=== PATIENT | male | born 1965 | race Two or more races ===

== ENCOUNTER 2016-07-28 21:36 | Emergency (ER) | payer MEDICAID ==
--- NOTE | 2016-07-28 21:57 | ED Physician Chart ---
Chief Complaint/HPI - Patient Information Date Seen:: 07/28/16 Time Seen:: 21:50 Chief Complaint:: Intermittent lightheadedness since this morning. History of Present Illness:: Pt is primarily [place] speaking. Interpretation is provided by his daughter Sheri per pt's request. Pt c/o intermittent lightheadedness since this morning. No CP or discomfort. No dyspnea. Pt has had nasal congestion. No cough. No fever. No palpitation. Allergies:: Allergies Allergy/AdvReac Type Severity Reaction Status Date / Time No Known Allergies Allergy Verified 12/07/15 18:01 Vitals:: see Nurse Note. Historian:: Patient Family MD/PCP:: Dr. Menendez. LMP:: N/A Review:: Nurse's Note Reviewed Review of Systems - Review of Systems General/Constitutional: No fever, No chills, No weight loss, No weakness, No diaphoresis, No edema, No loss of appetite Skin: No skin lesions, No rash, No bruising Head: No headache, Light headed (Intermittent.) Eyes: No loss of vision, No pain, No diplopia ENT: No earache, Nasal drainage, No sore throat, No tinnitus Neck: No neck pain, No swelling, No thyromegaly, No stiffness, No mass noted Cardio Vascular: No chest pain, No palpitations, No PND, No orthopnea, No edema Pulmonary: No SOB, No cough, No sputum, No wheezing GI: No nausea, No vomiting, No diarrhea, No pain, No melena, No hematochezia, No constipation, No hematemesis G/U: No dysuria, No frequency, No hematuria Musculoskeletal: No bone or joint pain, No back pain, No muscle pain Endocrine: No polyuria, No polydipsia Psychiatric: Prior psych history (with anxiety disorder.), No depression, No suicidal ideation, No homicidal ideation Hematopoietic: No bruising, No lymphadenopathy Allergic/Immuno: No urticaria, No angioedema Neurological: No syncope, No focal symptoms, No weakness, No paresthesia, No headache, No seizure, No dizziness, No confusion, No vertigo Past Medical History - Past Medical History Past Medical History: HTN, PUD/GERD, Other (ESRD on hemodialysis on M, W, F. Chronic anemia.) Social History: Non Smoker, No Alcohol, No Drug Use, , Other (lives with his daughter.) Employment:: Retired. Psychiatricy History: Other (Anxiety disorder) Medication: Reviewed Family Medical History - Family Member Mother History Unknown: Yes Ethnicity: Living Status: Hx Family Cancer: (UNKNOWN) Hx Family Coronary Artery Disease: (UNKNOWN) Hx Family Congestive Heart Failure: (UNKNOWN) Hx Family Hypertension: (UNKNOWN) Hx Family Stroke: (UNKNOWN) Hx Family Diabetes: (UNKNOWN) Hx Family Seizures: (UNKNOWN) Hx Family Dementia: (UNKNOWN) Hx Family AIDS: (UNKNOWN) Hx Family COPD: (UNKNOWN) Hx Family Hepatitis: (UNKNOWN) Hx Family Psychiatric Problems: (UNKNOWN) Hx Family Tuberculosis: (UNKNOWN) Physical Exam - Physical Examination General/Constitutional: Awake, Well-developed, well-nourished, Alert, No distress, GCS 15, Non-toxic appearing, Ambulatory Other Gen/Cons comments:: Breathes comfortably, speaks clearly, and ambulates without difficulty. Head: Atraumatic Eyes: Lids, conjuctiva normal, PERRL, EOMI Skin: Nl inspection, No rash, No skin lesions, No ecchymosis, No lymphadenopathy ENMT: External ears, nose nl, TM canals nl, Nasal exam nl, Oropharynx nl, Tonsils nl Other ENMT comments:: Mucous membrane slightly dry. Neck: Nontender, Full ROM w/o pain, No JVD, No nuchal rigidity, No bruit, No mass, No stridor Respiratory: Nl effort/Exclusion, Clear to Auscultation, No Wheeze/Rhonchi/Rales Cardio Vascular: RRR, No murmur, gallop, rubs GI: No tenderness/rebounding/guarding, No organomegaly, No hernia, Normal BS's, Nondistended, No mass/bruits, No McBurney tenderness Other GI comments:: Abdomen is soft. Extremities: No tenderness or effusion, Full ROM, normal strength in all extremities, No edema, Normal digits & nails Neuro/Psych: Alert/oriented (oriented x 3), Mood normal, Normal gait, No focal deficits Labs/Radiology/EKG Results - Lab Results Results: Laboratory Tests 07/28/16 07/28/16 07/28/16 22:15 22:15 22:15 WBC 5.3 RBC 3.28 L Hgb 10.5 L Hct 31.2 L D MCV 94.9 MCH 31.9 H MCHC Differential 33.6 RDW 14.8 Plt Count 176 MPV 7.1 Neutrophils % 61.4 Lymphocytes % 20.9 Monocytes % 10.4 H Eosinophils % 6.6 H Basophils % 0.7 PT 11.8 H INR 1.12 PTT (Actin FS) 29.3 Sodium 135 L Potassium 4.9 Chloride 98 Carbon Dioxide 28.2 Anion Gap 13.7 BUN 80 H Creatinine 10.2 H* Est GFR ( Amer) 6.9 Est GFR (Non-Af Amer) 5.7 BUN/Creatinine Ratio 7.8 Glucose 103 Calcium 9.0 Total Bilirubin 0.4 AST 10 L ALT 7 Alkaline Phosphatase 101 Creatine Kinase 60 Troponin I Total Protein 6.5 Albumin 3.2 L Globulin 3.3 Albumin/Globulin Ratio 1.0 07/28/16 22:15 WBC RBC Hgb Hct MCV MCH MCHC Differential RDW Plt Count MPV Neutrophils % Lymphocytes % Monocytes % Eosinophils % Basophils % PT INR PTT (Actin FS) Sodium Potassium Chloride Carbon Dioxide Anion Gap BUN Creatinine Est GFR ( Amer) Est GFR (Non-Af Amer) BUN/Creatinine Ratio Glucose Calcium Total Bilirubin AST ALT Alkaline Phosphatase Creatine Kinase Troponin I 0.01 Total Protein Albumin Globulin Albumin/Globulin Ratio - EKG Interpretations EKG Time:: 22:21 Rhythm: Sinus bradycardia Rate: 59 Comments:: NSSTT changes. No acute ischemic changes. ED Septic Shock - . Is Septic Shock (SBP<90, OR Lactate>4 mmol\L) present?: No Reassessment (Disposition) - Reassessment Reassessment:: 2340 Pt has been tolerating oral hydration well without N/V/D. He now feels much better and has been ambulating swiftly and steadily without assistance without difficulty. Pt denies any lightheadedness or bodily discomfort. Pt states that he has been taking lorazepam twice daily for anxiety over past few days. Pt now does not appear to be anxious. EKG and lab findings have been reviewed with pt. Pt requests to go home now and does not want further observation/management in hospital. He will follow with PCP Dr. Menendez tomorrow and will have hemodialysis tomorrow as well. Aftercare instructions have been given. Interpretation by his son Keith who will drive him home and care for him. Reassessment Condition:: Improved - Diagnosis Diagnosis:: Intermittent lightheadedness by hx, resolved and currently asymptomatic. Consider mild dehydration vs medication effect. - Aftercare/Follow up Instructions Aftercare/Follow-Up Instructions:: Refer to Discharge Instructions Notes:: Continue present care. Avoid using lorazepam for now until further physician direction. Increase oral fluid intake. Keep appointment for hemodialysis tomorrow. F/U with PCP Dr. Menendez in one day. Return to ER immediately if condition worsens or if any further questions/problems. Medication Prescribed:: None - Patient Disposition Discharge/Transfer:: Home Time:: 23:45 Condition at Disposition:: Stable, Improved ED Discharge Plan - Patient Disposition Admit/Discharge/Transfer: PT DISCHARGED HOME Instructions: Dehydration, Adult, [id number], End-Stage Kidney Disease Additional Instructions: follow up with primary medical doctor TORI pending dialysis tomorrow 07/29/16
[2016-07-28 22:33] LABS: % BASOPHILS 0.7 % (0.0-2.0); % EOSINOPHILS 6.6 % (0.0-5.0); % LYMPHOCYTES 20.9 % (20.0-50.0); % MONOCYTES 10.4 % (2.0-10.0); % NEUTROPHILS 61.4 % (40.0-80.0); HEMOGLOBIN 10.5 gm/dL (13.2-17.3); MEAN CELL VOLUME 94.9 fl (80-99); MEAN CORPUSCULAR HEMOGLOBIN 31.9 pg (26.0-30.0); MEAN CORPUSCULAR HGB CONC 33.6 pg (28.0-36.0); MEAN PLATELET VOLUME 7.1 fl; NEUTROPHILE ABSOLUTE 3.3 Th/cmm (1.8-8.0); PLATELET COUNT 176 Th/cmm (150-400); RED BLOOD COUNT 3.28 Mil/cmm (4.30-5.70); RED CELL DISTRIBUTION WIDTH 14.8 % (11.5-20.0); WHITE BLOOD COUNT 5.3 Th/cmm (4.8-10.8)
[2016-07-28 22:34] LABS: HEMATOCRIT 31.2 % (39.0-49.0)
[2016-07-28 22:42] LABS: ANION GAP 13.7 (7.0-16.0); BILIRUBIN,TOTAL 0.4 mg/dL (0.3-1.0); BUN/CREATININE RATIO 7.8; CARBON DIOXIDE 28.2 mEq/L (21.0-31.0); INR 1.12 (0.5-1.4); POTASSIUM SERUM 4.9 mEq/L (3.5-5.1); PROTHROMBIN TIME (TEST) 11.8 SECONDS (9.5-11.5)
[2016-07-28 23:01] LABS: CREATININE - SERUM 10.2 mg/dL (0.7-1.3)
== END 2016-07-28 23:40 | disposition home or self-care (01) ==
LOC: ER 21:36
DX: R42 Dizziness and giddiness (principal); K21.9 Gastro-esophageal reflux disease without esophagitis; I10 Essential (primary) hypertension; D64.89 Other specified anemias; N18.6 End stage renal disease; Z99.2 Dependence on renal dialysis
CPT/HCPCS: 36415-UA; 80053-TC; 82550-TC; 84484-TC; 85025-TC; 85610-TC; 93005

== ENCOUNTER 2017-08-19 19:42 | Emergency (ER) | payer MEDICAID ==
--- NOTE | 2017-08-19 20:48 | ED Physician Chart ---
ED Chief Complaint/HPI - Patient Information Date Seen:: 08/19/17 Time Seen:: 20:48 Chief Complaint:: Patient left ER without being seen by physician. Allergies:: Allergies Allergy/AdvReac Type Severity Reaction Status Date / Time No Known Allergies Allergy Verified 12/07/15 18:01 Vitals:: Vital Signs - 8 hr 08/19/17 19:45 Temp 99.6 F HR 68 RR 18 BP 144/74 O2 Sat % 96 Family Medical History - Family Member Mother History Unknown: Yes Ethnicity: Living Status: Hx Family Cancer: (UNKNOWN) Hx Family Coronary Artery Disease: (UNKNOWN) Hx Family Congestive Heart Failure: (UNKNOWN) Hx Family Hypertension: (UNKNOWN) Hx Family Stroke: (UNKNOWN) Hx Family Diabetes: (UNKNOWN) Hx Family Seizures: (UNKNOWN) Hx Family Dementia: (UNKNOWN) Hx Family AIDS: (UNKNOWN) Hx Family COPD: (UNKNOWN) Hx Family Hepatitis: (UNKNOWN) Hx Family Psychiatric Problems: (UNKNOWN) Hx Family Tuberculosis: (UNKNOWN) ED Septic Shock - . Is Septic Shock (SBP<90, OR Lactate>4 mmol\L) present?: No - <6hrs of presentation: Vital Signs: Vital Signs - 8 hr 08/19/17 19:45 Temp 99.6 F HR 68 RR 18 BP 144/74 O2 Sat % 96 ED Discharge Plan - Patient Disposition Admit/Discharge/Transfer: LEFT W/O BEING SEEN BY
== END 2017-08-19 20:48 | disposition left against medical advice (07) ==
LOC: ER 19:42
DX: R11.10 Vomiting, unspecified (principal); Z53.21 Procedure and treatment not carried out due to patient leaving prior to being seen by health care provider

== ENCOUNTER 2018-08-26 15:47 | Emergency (ER) | payer MEDICAID ==
--- NOTE | 2018-09-18 11:12 | ED Physician Chart ---
ED Chief Complaint/HPI - Patient Information Date Seen:: 08/26/18 Time Seen:: 15:47 Chief Complaint:: Wound Bleeding Allergies:: Allergies Allergy/AdvReac Type Severity Reaction Status Date / Time No Known Allergies Allergy Verified 12/07/15 18:01 Family Medical History - Family Member Mother History Unknown: Yes Ethnicity: Living Status: Hx Family Cancer: (UNKNOWN) Hx Family Coronary Artery Disease: (UNKNOWN) Hx Family Congestive Heart Failure: (UNKNOWN) Hx Family Hypertension: (UNKNOWN) Hx Family Stroke: (UNKNOWN) Hx Family Diabetes: (UNKNOWN) Hx Family Seizures: (UNKNOWN) Hx Family Dementia: (UNKNOWN) Hx Family AIDS: (UNKNOWN) Hx Family COPD: (UNKNOWN) Hx Family Hepatitis: (UNKNOWN) Hx Family Psychiatric Problems: (UNKNOWN) Hx Family Tuberculosis: (UNKNOWN) ED Septic Shock - . Is Septic Shock (SBP<90, OR Lactate>4 mmol\L) present?: No ED Reassessment (Disposition) - Reassessment Reassessment:: pt's wound bleeding resolved; pt chose to sign out AMA; pt is asymptomatic upon discharge Reassessment Condition:: Improved - Diagnosis Diagnosis:: Dialysis Catheter Wound Bleeding-Resolved - Patient Disposition Discharge/Transfer:: Against Medical Advice Condition at Disposition:: Stable, Improved (RTER prn if concerned)
== END 2018-08-26 16:04 | disposition left against medical advice (07) ==
LOC: ER 15:47
DX: T82.838A Hemorrhage due to vascular prosthetic devices, implants and grafts, initial encounter (principal)
CPT/HCPCS: Z7502

== ENCOUNTER 2018-11-22 10:34 | Emergency (ER) | payer MEDICAID ==
--- NOTE | 2018-11-22 10:53 | ED Physician Chart ---
ED Chief Complaint/HPI - Patient Information Date Seen:: 11/22/18 Time Seen:: 10:47 Chief Complaint:: nausea vomiting History of Present Illness:: 53 yr old male with hx ESRD on dialysis and hx liver cirrhosis with nv for 2 wks no fever cough no diarhea Allergies:: Allergies Allergy/AdvReac Type Severity Reaction Status Date / Time No Known Allergies Allergy Verified 12/07/15 18:01 ED Review of Systems - Review of Systems General/Constitutional: No fever, No chills, No weight loss, No weakness, No diaphoresis, No edema, No loss of appetite Skin: No skin lesions, No rash, No bruising Head: No headache, No light-headedness Eyes: No loss of vision, No pain, No diplopia ENT: No earache, No nasal drainage, No sore throat, No tinnitus Neck: No neck pain, No swelling, No thyromegaly, No stiffness, No mass noted Cardio Vascular: No chest pain, No palpitations, No PND, No orthopnea, No edema Pulmonary: No SOB, No cough, No sputum, No wheezing GI: Nausea, Pain G/U: No dysuria, No frequency, No hematuria Musculoskeletal: No bone or joint pain, No muscle pain Endocrine: No polyuria, No polydipsia Psychiatric: No prior psych history, No depression, No anxiety, No suicidal ideation Hematopoietic: No bruising, No lymphadenopathy Allergic/Immuno: No urticaria, No angioedema Neurological: No syncope, No focal symptoms, No weakness, No paresthesia, No headache, No seizure, No dizziness, No confusion, No vertigo ED Past Medical History - Past Medical History Past Medical History: ESRD, Other (liver cirhosis) Surgical History: other (gallstone removal) Family Medical History - Family Member Mother History Unknown: Yes Ethnicity: Living Status: Hx Family Cancer: (UNKNOWN) Hx Family Coronary Artery Disease: (UNKNOWN) Hx Family Congestive Heart Failure: (UNKNOWN) Hx Family Hypertension: (UNKNOWN) Hx Family Stroke: (UNKNOWN) Hx Family Diabetes: (UNKNOWN) Hx Family Seizures: (UNKNOWN) Hx Family Dementia: (UNKNOWN) Hx Family AIDS: (UNKNOWN) Hx Family COPD: (UNKNOWN) Hx Family Hepatitis: (UNKNOWN) Hx Family Psychiatric Problems: (UNKNOWN) Hx Family Tuberculosis: (UNKNOWN) ED Physical Exam - Physical Examination General/Constitutional: Awake, Well-developed, well-nourished, Alert, No distress, GCS 15, Non-toxic appearing, Ambulatory Head: Atraumatic Eyes: Lids, conjuctiva normal, PERRL, EOMI Skin: Nl inspection, No rash, No skin lesions, No ecchymosis, Well hydrated, No lymphadenopathy ENMT: External ears, nose nl, Nasal exam nl, Lips, teeth, gums nl Neck: Nontender, Full ROM w/o pain, No JVD, No nuchal rigidity, No bruit, No mass, No stridor Respiratory: Nl effort/Exclusion, Clear to Auscultation, No Wheeze/Rhonchi/Rales Cardio Vascular: RRR, No murmur, gallop, rubs, NL S1 S2 Other GI comments:: epigastric pain : No CVA tenderness Extremities: No tenderness or effusion, Full ROM, normal strength in all extremities, No edema, Normal digits & nails Neuro/Psych: Alert/oriented, DTR's symmetric, Normal sensory exam, Normal motor strength, Judgement/insight normal, Mood normal, Normal gait, No focal deficits Misc: Normal back, No paraspinal tenderness ED Assessment - Assessment General Assessment: nv abd pain liver cirrhosis renal failure on dialysis ED Septic Shock - . Is Septic Shock (SBP<90, OR Lactate>4 mmol\L) present?: No ED Reassessment (Disposition) - Reassessment Reassessment:: cirrhosis liver failure renal failure with nv on reglan - Diagnosis Diagnosis:: as above - Patient Disposition Discharge/Transfer:: Home Condition at Disposition:: Stable
[2018-11-22 11:15] LABS: % EOSINOPHILS 2.1 % (0.0-5.0); % LYMPHOCYTES 12.5 % (20.0-50.0); % MONOCYTES 12.4 % (2.0-10.0); EOSINOPHILE ABSOLUTE 0.1 Th/cmm (0.1-0.4); HEMATOCRIT 32.8 % (41.0-60); HEMOGLOBIN 10.9 gm/dL (12-16); LYMPHOCYTE ABSOLUTE 0.6 Th/cmm (1.5-3.0); MEAN CELL VOLUME 91.8 fl (80-99); MEAN CORPUSCULAR HEMOGLOBIN 30.5 pg (26.0-30.0); MEAN CORPUSCULAR HGB CONC 33.3 pg (28.0-36.0); MONOCYTE ABSOLUTE 0.6 Th/cmm (0.3-1.0); NEUTROPHILE ABSOLUTE 3.4 Th/cmm (1.8-8.0); PLATELET COUNT 134 Th/cmm (150-400); RED BLOOD COUNT 3.57 Mil/cmm (4.30-5.70); RED CELL DISTRIBUTION WIDTH 16.7 % (11.5-20.0); WHITE BLOOD COUNT 4.7 Th/cmm (4.8-10.8)
[2018-11-22 11:26] LABS: ALB/GLOB RATIO 1.2 (1.0-1.8); ALBUMIN 3.9 gm/dL (4.2-5.5); ANION GAP 19.3 (7.0-16.0); BILIRUBIN,TOTAL 0.9 mg/dL (0.3-1.0); CALCIUM SERUM 9.8 mg/dL (8.6-10.3); CARBON DIOXIDE 25.1 mEq/L (21.0-31.0); GFR NON AFRICAN-AMERICAN 6.6 ml/min; POTASSIUM SERUM 4.4 mEq/L (3.5-5.1); TOTAL PROTEIN,SERUM 7.3 gm/dL (6.0-8.3)
--- NOTE | 2018-11-22 11:37 | Diagnostic Imaging Report ---
CT abdomen and pelvis without intravenous contrast Indication: GI bleeding Comparison: CT abdomen and pelvis on 11/29/2015 and ultrasound on 02/05/2016, Technique: Axial images were obtained from the lung bases to the bilateral proximal femurs without IV contrast. Coronal reconstructions were made. total DLP: 501, CTDI8.5 FINDINGS: Small pericardial effusion is noted. Hypoventilatory nonspecific groundglass densities of the lung bases are noted. Atelectatic changes are noted. Evaluation of the solid organs is limited due to lack of IV contrast. Small amount of abdominal and pelvic ascites is noted. There is additional inflammatory changes are seen throughout the abdominal and pelvic fat planes. No focal hepatic lesions. Patient is status post cholecystectomy. Splenic artery calcifications are noted. Pancreatic gland atrophy is noted with no discrete focal lesions. No focal adrenal lesions. Bilateral renal atrophy is noted with bilateral renal cysts and the largest on the right measuring 2 cm. Additional subcentimeter low-density lesions are seen to small to characterize. Small fat-containing left inguinal hernia is seen containing fluid from patient's ascites. Copious stool is seen throughout the colon. Appendix is not well-visualized. Mild anasarca is noted. Degenerative changes of the spine are noted with multiple Schmorl's nodes noted. There is generalized abnormal density throughout the bones. Multiple small lucent lesions are also seen within the pelvis. Mild atherosclerosis is noted. IMPRESSION: Mild abdominal and pelvic ascites with associate inflammatory changes seen along the regional abdominal and pelvic fat planes Copious stool throughout the colon. Evidence of prior cholecystectomy. Bilateral renal atrophy and small renal cysts. Small fat-containing left inguinal hernia containing small amount of fluid from patient's ascites Anasarca. Nonspecific bilateral groundglass densities of the lungs. Small pericardial effusion. Mild atherosclerotic vascular disease. Generalized abnormal bony mineralization. Multiple small lucent lesions are seen within the pelvis. Findings are indeterminate and may be due to metabolic etiologies and patient's chronic renal failure and dialysis. Other etiologies such as multiple myeloma cannot be excluded. Recommend clinical correlation.
[2018-11-22 11:44] LABS: CREATININE - SERUM 8.9 mg/dL (0.7-1.3)
== END 2018-11-22 12:30 | disposition home or self-care (01) ==
LOC: ER 10:34
DX: K74.60 Unspecified cirrhosis of liver (principal); N18.6 End stage renal disease; K72.90 Hepatic failure, unspecified without coma; R11.2 Nausea with vomiting, unspecified; Z99.2 Dependence on renal dialysis
CPT/HCPCS: 99284; 96374; 74176; 36415; 85025; 80053; 87040 ×2; J2405